=== PATIENT | male | born 1985 | race African-American/Black ===

== ENCOUNTER 2016-12-12 20:55 | Emergency (ER) | payer MEDICAID ==
[~2016-12-12] VITALS: Ht 160 cm; Wt 56.7 kg
[~2016-12-12 20:55] MED LIST: AUGMENTIN 875-1 EAC1 ORAL; IBUPROFEN600 MG ORAL; IBUPROFEN800 MG ORAL; TAMIFLU75 MG ORAL; ZOFRAN4 MG ORAL
[2016-12-12] MEDS ORDERED: NKM (21:02)
[2016-12-12 21:15] VITALS: BP 130/84
[2016-12-12] MEDS ORDERED: Tetanus/Diptheria/Pertussis Vaccine 0.5ml Syr IM ONE (21:30)
[2016-12-12 23:25] VITALS: BP 0/0
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
== END 2016-12-12 23:25 | disposition home or self-care (01) ==
LOC: EMR 21:10
DX: S01.312A Laceration without foreign body of left ear, initial encounter (principal); W22.8XXA Striking against or struck by other objects, initial encounter; Y92.89 Other specified places as the place of occurrence of the external cause; Z23 Encounter for immunization
CPT/HCPCS: 12011; 90471; 90715; 99284; Z7502; 96372

== ENCOUNTER 2018-01-24 20:15 | Emergency (ER) | payer MEDICAID ==
[~2018-01-24] VITALS: Ht 160 cm; Wt 56.7 kg
[~2018-01-24 20:15] MED LIST changes: +NKM
--- NOTE | 2018-01-24 20:52 | Emergency Room Report ---
History of Present Illness General Chief Complaint: Abdominal Pain Source: Patient Present Illness HPI Patient with R groin pain/lower abdominal pain present for 2 months. Not remember what he was doing when this began. Worse with movement and coughing. Had hernia on other side which felt similar. Pain rated 0/10 at rest, 5/10 when moves or coughs. Sharp and aching. No medicines taken. No fevers, chills, dysuria, NVD, change in bowels. 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 Nursing Documentation: PMH: Agreed; PSxH: Agreed Nursing Documentation-PMH Past Medical History: No Stated History Review of Systems Constitutional: Reports: see HPI Respiratory: Denies: shortness of breath Cardiovascular: Denies: chest pain, edema Gastrointestinal: Reports: see HPI Genitourinary: Reports: see HPI Musculoskeletal: Denies: back pain, joint pain Skin: Denies: rash Physical Exam Vital Signs Date Time Temp Pulse Resp B/P (MAP) Pulse Ox O2 Delivery O2 Flow Rate FiO2 01/24/18 20:34 98.5 79 15 121/78 95 Room Air 98.4 Sp02 EP Interpretation: reviewed, normal General Appearance: well appearing, no apparent distress Head: normocephalic, atraumatic Eyes: bilateral eye normal inspection, bilateral eye PERRL ENT: hearing grossly normal, normal voice, moist mucus membranes Neck: full range of motion, supple Respiratory: no respiratory distress, speaking full sentences Gastrointestinal: no hernia, tenderness - RLQ - abdominal wall, not referred Genitourinary: penis normal, scrotum normal Musculoskeletal: gait/station normal, normal range of motion Neurologic: alert, oriented x3, normal gait, grossly normal Psychiatric: mood/affect normal Skin: no rash Medical Decision Making Diagnostic Impression: Primary Impression: Abdominal muscle strain Qualified Codes: S39.011A - Strain of muscle, fascia and tendon of abdomen, initial encounter ER Course Patient with RLQ pain 2 months. DDX: hernia, muscle strain. No symptoms of UTI - UA not indicated. Exam excludes hernia at this time. Dx clinical = muscle strain. Patient treated with motrin. Improved. Patient stable for outpatient observation and treatment. Last Vital Signs Date Time Temp Pulse Resp B/P (MAP) Pulse Ox O2 Delivery O2 Flow Rate FiO2 01/24/18 21:12 0/0 01/24/18 21:11 98.4 15 95 Room Air 98.4 01/24/18 20:34 79 121/78 Status: improved Disposition: HOME, SELF-CARE Condition: Improved Scripts Acetaminophen (Tylenol) 325 Mg Tablet 650 MG ORAL Q6H PRN for Prn Pain/Headache/Temp > 101, #20 TAB 0 Refills Prov: Sy Hansen M.D. 01/24/18 Ibuprofen* (MOTRIN*) 600 Mg Tablet 600 MG ORAL Q6H PRN for For Pain, #20 TAB Prov: Sy Hansen M.D. 01/24/18 Sy Hansen M.D. Jan 24, 2018 20:52
[2018-01-24] MEDS ORDERED: TYLENOL325 MG ORAL (20:54)
[2018-01-24] MEDS ORDERED: IBUPROFEN600 MG ORAL (20:54)
[2018-01-24 21:11] VITALS: BP 121/78
[2018-01-24 21:12] VITALS: BP 0/0
== END 2018-01-24 21:13 | disposition home or self-care (01) ==
LOC: EMR 20:59
DX: S39.011A Strain of muscle, fascia and tendon of abdomen, initial encounter (principal); X58.XXXA Exposure to other specified factors, initial encounter; Y93.9 Activity, unspecified; Y92.9 Unspecified place or not applicable
CPT/HCPCS: 99283